=== PATIENT | female | born 1960 | race Caucasian/White ===

== ENCOUNTER 2021-01-24 22:31 | Emergency (ER) | payer BC, SELFPAY ==
--- NOTE | ~2021-01-24 | CT_ITS ---
EXAMINATION: CT HEAD WITHOUT CONTRAST CT CERVICAL SPINE WITHOUT CONTRAST CLINICAL INFORMATION: Head trauma COMPARISON: None. TECHNIQUE: Multidetector CT imaging of the head and cervical spine was performed without the use of intravenous contrast. Multiplanar reformats are reviewed. This CT examination was performed using dose optimization techniques as appropriate, variously including the following: *Automated exposure control *Adjustment of mA and/or kV according to patient size (this includes techniques or standardized protocols for targeted exams where dose is matched to indication/reason for exam; i.e. extremities or head) *Use of iterative reconstruction technique DLP: 1069 mGy-cm. FINDINGS: There is no evidence of acute intracranial hemorrhage or territorial infarction. No abnormal mass effect or midline shift is seen. Cruz to white matter differentiation is well preserved. No extra-axial fluid collections are identified. The ventricles are normal in size. Mild patchy subcortical and periventricular white matter low-attenuation changes statistically related to chronic white matter small vessel ischemic disease. Thin right parietal calvarial subgaleal hematoma. Small secretions present within the right maxillary sinus and throughout the ethmoid air cells. Atlantooccipital alignment is maintained. The vertebral bodies and posterior elements align normally. No acute fracture or subluxation. Vertebral body heights are maintained.Endplate osteophyte is present at C4-C5 and C5-C6 with accompanying loss of disc space height. Bulky hypertrophic facet arthropathy present on the left at C3-C4. Mild facet arthropathy throughout the remainder of the cervical spine. Varying degrees of foraminal narrowing present throughout cervical spine, most pronounced on the left at C5-C6 The cervicomedullary junction and spinal cord are grossly unremarkable. The paraspinal soft tissues are unremarkable. Imaged lung apices demonstrate moderate centrilobular paraseptal emphysema. CT/CT cervical spine wo con IMPRESSION: No acute intracranial pathology. Mild chronic white matter small vessel ischemic changes. Thin right parietal calvarial subgaleal hematoma. No cervical spine fracture or malalignment.
[2021-01-24 22:47] VITALS: BP 158/90; PULSE 97; RESP 16; TEMP 36.5; O2SAT 95; BMI 23.3
--- NOTE | 2021-01-24 23:13 | ED.FALL ---
HPI - Fall General Chief Complaint: Fall Stated Complaint: etoh fall Time Seen by Provider: 01/24/21 23:06 History of Present Illness HPI Narrative: 60-year-old female status post accidental fall. Patient positive ETOH subsequently accidentally fell. Hit her head. There is questionable loss of consciousness for about 1 minutes. Patient is not on any blood thinners. No significant past medical history. Not on any medications. Patient is from home. No suicidal homicidal ideations. Related Data Allergies Allergy/AdvReac Type Severity Reaction Status Date / Time No Known Allergies Allergy Verified 01/24/21 23:06 Review of Systems Review of Systems: Constitutional: No Weight loss, No Fever, No Chills, No Night Sweats, No Fatigue, No Malaise ENT/Mouth: No Hearing loss, No Ear Pain, No Nasal Congestion, No Sinus Pain, No Hoarseness, No sore throat, No Rhinorrhea, No Swallowing Difficulty. Eyes: No Eye Pain, No Swelling, No Redness, No Foreign Body, No Discharge, No Vision Changes Cardiovascular: No Chest Pain, No SOB, No Dyspnea on Exertion, No Orthopnea, No Edema, No Palpitations Respiratory: No Cough, No Sputum, No Wheezing, No Smoke Exposure, No Dyspnea Gastrointestinal: No Nausea, No Vomiting, No Diarrhea, No Constipation, No abdominal Pain, No Hematochezia, No Melena Genitourinary: no irregular bleeding, No Dysuria, No Urinary Frequency, No Hematuria, No Urinary Incontinence, No Urgency, No Flank Pain, No Urinary Flow Changes, No Hesitancy Musculoskeletal: No joint pain, No Myalgias, No Joint Swelling Skin: No Skin Lesions, No rash Neuro: No Weakness, No Numbness, No Paresthesias, No Loss of Consciousness, No Dizziness, No Headache Psych: No Anxiety/Panic, No Depression, No SI/HI/AH/VH, No Social Issues, Heme/Lymph: No Bruising, No Bleeding,No Lymphadenopathy Endocrine: No Polyuria, No Polydipsia, No Temperature Intolerance Yes all other systems are reviewed and are negative [facility] Past Medical History Attestation statement: The following information was validated with the patient. Social History Social History Alcohol intake: current Alcohol intake frequency: a few times a week Alcohol type: hard liquor Patient Tobacco Use Status: Current everyday Tobacco user Smoked in Last 30 Days: Yes Use of substances other than those prescribed or required for medical reasons: No Advance Directives: No Advance Directives Information Provided: No Patient : No Physical Exam Vital Signs: Vital Signs: Last Vital Signs Temp 97.7 F 01/24/21 22:47 Pulse 97 01/24/21 22:47 Resp 16 01/24/21 22:47 BP 158/90 H 01/24/21 22:47 Pulse Ox 95 01/24/21 22:47 Body Mass Index 23.3 Appearance: Alert. Oriented X3. No acute distress. Positive 3 cm superficial laceration to the occipital area Eyes: Pupils equal, round and reactive to light. ENT: Pharynx normal. Neck: Normal inspection. Neck supple. No lymph nodes noted. No crepitus. C-spine immobilized secondary distracting injury trachea is midline. No C-spine tenderness elicited on palpation. CVS: Normal heart rate and rhythm. Pulses normal. Normal S1 and S2 Respiratory: No respiratory distress. Breath sounds normal. No Wheezing. No rales. Lungs are clear bilaterally. Nontender to touch Abdomen: Soft and nontender. No rigidity. No distention. good BS x4 Skin: Skin warm and dry. Normal skin color. Normal skin turgor. Extremities: No lower extremity edema. Neurovascular intact to all extremities. No Lacerations. No Rash Neuro: Oriented X 3. No motor deficit. No sensory deficit. Moving all extermities. No slurred speech MDM - Fall MDM Narrative Medical decision making narrative: CT scan of the head was grossly negative for any acute evidence of fracture no bleed. Patient's alcohol grossly elevated. Family at bedside will take patient home and monitor. Currently in stable condition. C-spine CT was negative for acute evidence of fracture. Patient is in stable condition with discharge home. Lab Data Result diagrams: 01/24/21 23:33 01/24/21 23:33 Labs: Lab Results 01/24/21 01/24/21 01/24/21 Range/Units 23:08 23:08 23:26 WBC (4.8-10.8) X10*3/uL RBC (4.20-5.50) X10*6/uL Hgb (12.0-16.0) g/dl Hct (37-47) % MCV (80-98) fL MCH (27.0-33.0) pg MCHC (31.0-35.0) g/dl RDW (11.0-16.0) % Plt Count (160-400) X10*3/uL MPV (9.4-12.3) fL Immature Gran % (Auto) (0.0-0.4) % Neut % (Auto) (45-73) % Lymph % (Auto) (20-40) % [place] % (Auto) (2-11) % Eos % (Auto) (0-4) % Baso % (Auto) (0-2) % Lymph # (Auto) (1.2-4.9) X10*3/uL [place] # (Auto) (0.1-1.2) X10*3/uL Eos # (Auto) (0.0-0.4) X10*3/uL Baso # (Auto) (0.0-0.2) X10*3/uL Abs Immat Gran (auto) (0.00-0.03) X10*3/uL Absolute Neuts (auto) (2.0-8.3) X10*3/uL Absolute Nucleated RBC (0.0-0.012) X10*3/uL Nucleated RBC % (auto) (0.0-0.2) /100WBC Sodium (135-145) mmol/L Potassium (3.3-5.1) mmol/L Chloride (96-108) mmol/L Carbon Dioxide (22-29) mmol/L Anion Gap (12-20) BUN (9-16) mg/dL Creatinine (0.5-1.4) mg/dL Estim Creat Clear Calc Estimated GFR Random Glucose (60-115) mg/dL Calcium (8.4-10.2) mg/dL Urine Color STRAW Urine Appearance CLEAR Urine pH 6.0 (5.0-8.0) Ur Specific Caret <= 1.005 (1.005-1.025) Urine Protein NEG (NEG-TRACE) MG/DL Urine Glucose (UA) NEG (NEG) MG/DL Urine Ketones NEG (NEG) MG/DL Urine Blood NEG (NEG) Urine Nitrite NEG (NEG) Ur Leukocyte Esterase NEG (NEG) Urine Opiates Screen Not Detected (Not Detect) Ur Barbiturates Screen Not Detected (Not Detect) Ur Phencyclidine Scrn Not Detected (Not Detect) Ur Amphetamines Screen Not Detected (Not Detect) U Benzodiazepines Scrn Not Detected (Not Detect) Urine Cocaine Screen Not Detected (Not Detect) U Marijuana (THC) Screen POSITIVE H (Not Detect) Ethyl Alcohol 243 mg/dL 01/24/21 01/24/21 Range/Units 23:33 23:33 WBC 11.0 H (4.8-10.8) X10*3/uL RBC 4.71 (4.20-5.50) X10*6/uL Hgb 15.6 (12.0-16.0) g/dl Hct 45.2 (37-47) % MCV 96.0 (80-98) fL MCH 33.1 H (27.0-33.0) pg MCHC 34.5 (31.0-35.0) g/dl RDW 13.2 (11.0-16.0) % Plt Count 351 (160-400) X10*3/uL MPV 8.7 L (9.4-12.3) fL Immature Gran % (Auto) 1.5 H (0.0-0.4) % Neut % (Auto) 68.6 (45-73) % Lymph % (Auto) 22.7 (20-40) % [place] % (Auto) 5.2 (2-11) % Eos % (Auto) 1.5 (0-4) % Baso % (Auto) 0.5 (0-2) % Lymph # (Auto) 2.5 (1.2-4.9) X10*3/uL [place] # (Auto) 0.6 (0.1-1.2) X10*3/uL Eos # (Auto) 0.2 (0.0-0.4) X10*3/uL Baso # (Auto) 0.1 (0.0-0.2) X10*3/uL Abs Immat Gran (auto) 0.16 H (0.00-0.03) X10*3/uL Absolute Neuts (auto) 7.5 (2.0-8.3) X10*3/uL Absolute Nucleated RBC 0.000 (0.0-0.012) X10*3/uL Nucleated RBC % (auto) 0.0 (0.0-0.2) /100WBC Sodium 146 H (135-145) mmol/L Potassium 3.6 (3.3-5.1) mmol/L Chloride 110 H (96-108) mmol/L Carbon Dioxide 20 L (22-29) mmol/L Anion Gap 20 (12-20) BUN 8 L (9-16) mg/dL Creatinine 0.62 (0.5-1.4) mg/dL Estim Creat Clear Calc 89.0 Estimated GFR > 60 Random Glucose 93 (60-115) mg/dL Calcium 9.5 (8.4-10.2) mg/dL Urine Color Urine Appearance Urine pH (5.0-8.0) Ur Specific Caret (1.005-1.025) Urine Protein (NEG-TRACE) MG/DL Urine Glucose (UA) (NEG) MG/DL Urine Ketones (NEG) MG/DL Urine Blood (NEG) Urine Nitrite (NEG) Ur Leukocyte Esterase (NEG) Urine Opiates Screen (Not Detect) Ur Barbiturates Screen (Not Detect) Ur Phencyclidine Scrn (Not Detect) Ur Amphetamines Screen (Not Detect) U Benzodiazepines Scrn (Not Detect) Urine Cocaine Screen (Not Detect) U Marijuana (THC) Screen (Not Detect) Ethyl Alcohol mg/dL Discharge Plan Discharge Clinical Impression: Head injury, Alcohol abuse Patient Disposition: Home, Self-Care Instructions: Head Injury (ED), Alcohol Intoxication (ED) Referrals: Physician,Unknown [Primary Care Provider] - 2 days
[2021-01-24 23:18] LABS: Glucose Urine UA NEG (NEG); Leukocyte Esterase Urine NEG (NEG); Nitrite Urine NEG (NEG); Specific Gravity - Urine <= 1.005 (1.005-1.025); Urine Blood NEG (NEG); Urine Ketones NEG (NEG); Urine Protein NEG (NEG-TRACE)
[2021-01-24 23:21] LABS: Appearance Urine CLEAR; Color Urine STRAW
[2021-01-24 23:26] LABS: Amphetamine Screen Urine Not Detected (Not Detect); Barbiturates, Urine Not Detected (Not Detect); Benzodiazepines Screen Urine Not Detected (Not Detect); Cannabinoid Screen Urine POSITIVE (Not Detect); Cocaine Screen Urine Not Detected (Not Detect); Opiate Screen Urine Not Detected (Not Detect); Phencyclidine Screen Urine Not Detected (Not Detect)
[2021-01-24] MEDS: Diphth,Pertus(ACell),Tet Adult 0.5 ML SYRINGE IM (23:27)
[2021-01-24 23:43] LABS: MANUAL DIFF FLAG NO
[2021-01-24 23:44] LABS: Basophils Absolute Auto 0.1 X10*3/uL (0.0-0.2); Basophils Percent Auto 0.5 % (0-2); Eosinophils Absolute Auto 0.2 X10*3/uL (0.0-0.4); Eosinophils Percent Auto 1.5 % (0-4); Hematocrit 45.2 % (37-47); Hemoglobin 15.6 g/dl (12.0-16.0); Imm Gran Abs Auto 0.16 X10*3/uL (0.00-0.03); Imm Gran Pct Auto 1.5 % (0.0-0.4); Lymphocytes Absolute Auto 2.5 X10*3/uL (1.2-4.9); Lymphocytes Percent Auto 22.7 % (20-40); Mean Corpuscular HGB Conc 34.5 g/dl (31.0-35.0); Mean Corpuscular Hemoglobin 33.1 pg (27.0-33.0); Mean Platelet Volume 8.7 fL (9.4-12.3); Monocytes Absolute Auto 0.6 X10*3/uL (0.1-1.2); Monocytes Percent Auto 5.2 % (2-11); Neutrophils Absolute Auto 7.5 X10*3/uL (2.0-8.3); Neutrophils Percent Auto 68.6 % (45-73); Platelet Count 351 X10*3/uL (160-400); Red Blood Count 4.71 X10*6/uL (4.20-5.50); Red Cell Distribution Width 13.2 % (11.0-16.0)
[2021-01-25] VITALS: BP 153/80; PULSE 74; RESP 18; TEMP 36.4; O2SAT 97
[2021-01-25 00:07] LABS: Ethanol 243 mg/dL
[2021-01-25 00:08] LABS: Anion Gap 20 (12-20); Blood Urea Nitrogen 8 mg/dL (9-16); Calcium 9.5 mg/dL (8.4-10.2); Carbon Dioxide 20 mmol/L (22-29); Chloride 110 mmol/L (96-108); Estimated Glomerular Filt Rate > 60; Glucose Random 93 mg/dL (60-115); Potassium 3.6 mmol/L (3.3-5.1); Sodium 146 mmol/L (135-145)
--- NOTE | 2021-01-25 00:36 | PC.NURSE ---
This Tech cleaned pts wound on head with saline,Md blessing aware
== END 2021-01-25 00:41 | disposition home or self-care (01) ==
PROVIDERS: Emergency Provider Emergency Medicine Emergency Medical Services
DX: S09.90XA Unspecified injury of head, initial encounter (principal); F10.129 Alcohol abuse with intoxication, unspecified; Y90.8 Blood alcohol level of 240 mg/100 ml or more; W19.XXXA Unspecified fall, initial encounter; Y93.9 Activity, unspecified; Y92.9 Unspecified place or not applicable; Y99.9 Unspecified external cause status
CPT/HCPCS: 36415; 70450; 72125; 80048; 80307; 81003; 82077; 85025; 90471; 90715; 99284

== ENCOUNTER 2025-08-03 10:42 | Outpatient (AMB) | payer BC, SELFPAY ==
--- NOTE | 2025-08-03 10:42 | A.OFFPC_ITS ---
Vital Signs 08/03/25 10:46 Height 5 ft 4.96 in Weight 117 lb BMI 19.5 BP 141/72 H Blood Pressure Location Rt brachial Position Sitting Respiration 14 Pulse 84 Pulse Source Pulse Oximeter Temp 98.2 F Temp Source Temporal Artery Scan Pulse Oximetry (%) 96 Oxygen Delivery Method Room Air Intake Visit Reasons: Annual physical, new - see comments Global Climate Change Analyst Required: No Accompanied by: Self / Same As Patient Allergies No Known Allergies Allergy (Verified 08/03/25 13:25) Medication List - Last Reconciled 08/03/25 by Andrea Pearson MD meloxicam 15 mg PO DAILY Tobacco use date assessed: 08/03/25 Dental Screening Dental Screen Date: 08/03/25 Did you have a dental visit in the last 12 months?: Yes Did you have a dental problem in the last 6 months where you did not have access to dental care?: No Was dental information given to patient?: Patient has dentist (partial dentures) HPI HPI Comments History of Present Illness Details History of Present Illness - The patient is a 64 year old female pr esenting for an annual physical examination and to address concerns of finger and foot pain. - She reports developing finger issues a bout a year ago, which have been slowly worsening. - She experiences pain and a sensation o f her finger getting caught, which is most prominent in the morning. - The patient also complains of painful heels and balls of her toes bilaterally, describing the sensation as burning. - She has worked on her feet her whole [employer] and has a history of a smashed toe. - Regarding health maintenance, her last colonoscopy was at age 53, where one polyp was found, and she is now overdue for a follow-up. - Her last mammogram was about a year ag o, which had findings that were being followed, and she is due for a new one. - Her last gynecological exam was two to three years ago. - The patient smokes half a pack of ciga rettes per day and drinks alcohol occasionally. - She has recently received her flu shot . Social History - Tobacco Use: The patient smokes half a pack of cigarettes per day, attributing it to stress. - Alcohol Use: The patient reports occas ional alcohol consumption and denies daily use. 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 Results [facility] Family History (Updated 08/03/25 @ 10:50 by JAROCHO Eaton) Father Lung cancer Mother Aneurysm Social History (Updated 08/03/25 @ 10:50 by JAROCHO Eaton) Housing: House Alcohol intake: current Alcohol intake frequency: holidays/special occasions only Patient Tobacco Use Status: Current everyday Tobacco user Tobacco use type: Cigarette Cigarettes Per Day: 10 service: No Current occupational status: employed Cognitive needs: No Hearing needs: No Vision needs: No Questionnaire PHQ-9 Over the last 2 weeks, how often have you been bothered by any of the following problems? 1. Little interest or pleasure in doing things: not at all 2. Feeling down, depressed, or hopeless: not at all 3. Trouble falling or staying asleep, or sleeping too much: not at all 4. Feeling tired or having little energy: not at all 5. Poor appetite or overeating: not at all 6. Feeling bad about yourself - or that you are a failure or have let yourself or your family down: not at all 7. Trouble concentrating on things, such as reading the newspaper or watching television: not at all 8. Moving or speaking so slowly that other people could have noticed. Or the opposite - being so fidgety or restless that you have been moving around a lot more than usual: not at all 9. Thoughts that you would be better off or of hurting yourself in some way: not at all Total score: 0 Source: Developed by Drs. Akil Mora, Luna Lozoya, Paulino Pearl and colleagues, with an educational jermaine from [employer]. Thrive Questionnaire Date Thrive assessed: 08/03/25 I am a: Patient What is your living situation today?: I have a steady place to live Within the past 12 months, did the food you bought not last and you didn't have the money to get more?: Never true Within the past 12 months, did you worry whether your food would run out before you got money to buy more?: Never true Do you have trouble paying for medicines?: No Do you have trouble getting transportation to medical appointments?: No Do you have trouble paying your heating and electricity bill?: No Do you have trouble taking care of your child, family member or friend?: No Do you have trouble with day-to-day activities such as bathing, preparing meals, shopping, managing finances, etc.?: No Are you currently unemployed and looking for a job?: No Are you interested in more education?: No Please select the resources that you would like help with: None THRIVE Score: 0 AUDIT C Alcohol Use Questionnaire (AUDIT-C) 1. How often do you have a drink containing alcohol?: Monthly or less 2. How many drinks containing alcohol do you have on a typical day when you are drinking?: 1 or 2 3. How often do you have six or more drinks on one occasion?: Never Total Score: 1 GLEN-7 AMB Questionnaire GLEN-7 Date GLEN - 7 assessed: 08/03/25 Feeling nervous, anxious, or on edge: 0 = Not at all Not being able to stop or control worryin = Not at all Worrying too much about different things: 0 = Not at all Trouble relaxin = Not at all Being so restless that it is hard to sit still: 0 = Not at all Becoming easily annoyed or irritable: 0 = Not at all Feeling afraid as if something awful might happen: 0 = Not at all Total GLEN-7 score (0-4 normal; 5-9 mild; 10-14 moderate; 15-21 severe): 0 Source: Developed by Drs. Akil Mora, Luna Lozoya, Paulino Pearl and colleagues, with an educational jermaine from [employer]. Review of Systems Narrative Review of Systems - Musculoskeletal: Reports finger pain, stiffness, and a locking sensation, consistent with trigger finger. Reports bilateral foot pain in the heel and ball of the toes. - Neurological: Reports a burning sensation in her feet. - Eyes: Reports blurred vision when reading small print. Denies seeing halos around lights. - Ears: Reports good hearing. Physical exam (Primary Care) Vital Signs: Last Vital Signs Temp 98.2 F 08/03/25 10:46 Pulse 84 08/03/25 10:46 Resp 14 08/03/25 10:46 BP 141/72 H 08/03/25 10:46 Pulse Ox 96 08/03/25 10:46 Oxygen Delivery Method Room Air 08/03/25 10:46 BMI result Body Mass Index 19.5 Tobacco/Smoking Status: Tobacco use Status Tobacco use date assessed 08/03/25 08/03/25 10:44 Patient Tobacco Use Status Current everyday Tobacco 08/03/25 10:50 Tobacco use type Cigarette 08/03/25 10:50 PHQ-9: PHQ-9 Score PHQ-9: Total score 0 08/03/25 10:44 Thrive Assessment: Date of Thrive Assessment Date Thrive assessed 08/03/25 08/03/25 10:44 Narrative Physical Exam General: Cooperative and healthy appearing Nutritional Appearance: Well nourished Orientation/consciousness: Patient oriented x3 Limitations: No limitations Head: Normal to inspection General: Appearance normal, both eyes and all related structures Neck: Normal visual inspection Chest: Normal palpation of entire chest wall Respiratory: Normal respiratory effort Neurology: Patient oriented x3 Office Procedures Flu Questionnaire Does the patient have a severe egg allergy?: No Does the patient have severe life threatening allergies?: No Does the patient have a fever or illness today?: No Has the patient ever had Guillain-Sugarcreek Syndrome?: No Has the patient ever had any past reaction to a flu shot?: No Immunizations Fluarix [id number] (PF) 45 mcg (15 mcg x 3)/0.5 mL IM syringe Performing Provider: Andrea Pearson MD [facility] Administered by: JAROCHO Eaton on 08/03/25 10:51 Dose Route Admin Location Dispensed Lot Number Expiration Date [employer] Faculty Member 0.5 mL IM Left Deltoid 0.5 mL [id number] 02/09/26 69677-268-09 [employer] VIS Given Date VIS Provided VIS Publication Date 08/03/25 Single Vaccine 24 Eligibility Eligibility Date Funding Source Not [facility] Eligible 08/03/25 Private Coding Level of Care Code New Pt Prev Care 40-64y(10823) Add On Preventative Visit Only Diagnoses Osteoarthritis M19.90 Annual physical exam Z00.00 Assessment & Plan Assessment & Plan (1) Osteoarthritis: Code(s): M19.90 - Unspecified osteoarthritis, unspecified site Plan: Referral for trigger finger to ortho (2) Annual physical exam: Code(s): Z00.00 - Encounter for general adult medical examination without abnormal findings Plan Plan - Prescribed meloxicam for osteoarthritis/trigger finger, with instructions to take it with food. - Will refer the patient to a hand specialist for a steroid injection for the trigger finger. - Ordered comprehensive fasting blood work, including a complete blood count, kidney function tests, electrolytes, cholesterol panel, thyroid panel, and a vitamin B12 level to investigate the cause of her foot pain. - Ordered a routine screening mammogram. - Ordered a screening colonoscopy. - Recommended wearing a donut-shaped foot splint to help relieve pressure and pain in the feet. - The patient will self-schedule an appointment with her rail project engineer for a routine examination. - Scheduled a follow-up appointment in six months. Discussion Notes I explained to the patient that her finger symptoms are consistent with trigger finger due to osteoarthritis. I discussed that treatment involves reducing inflammation and prescribed meloxicam for short-term relief, advising her to take it with food. I recommended a referral to a hand specialist for a steroid injection as a more definitive treatment. Regarding her foot pain, I explained that we would order blood work, including a vitamin B12 level, to rule out a nutritional deficiency as a cause. I also suggested trying an [id number] donut-shaped foot support to alleviate pressure. We discussed the need for routine health screenings, and I have placed orders for a mammogram and colonoscopy. I also ordered comprehensive fasting labs. The patient acknowledged her need for a gynecological exam and will schedule it herself. We will follow up in six months to review the results and her progress. Patient Instructions - You will be referred to a hand specialist for your finger pain; you should expect a call to schedule this appointment. - A prescription for Meloxicam has been sent to your pharmacy. Take this medication with a meal like breakfast, lunch, or dinner to help with finger pain. - Please go for blood work. You need to fast before the test, meaning you should not eat or drink anything with milk or sugar. Water and black coffee are okay. The lab [place] on [address]. - You will receive a call to schedule a mammogram and a colonoscopy. Please contact our office if you do not hear from them within a week. - For your foot pain, you can buy a donut-shaped support from a pharmacy like [facility] or online to help relieve pressure. - Please schedule an appointment with your rail project engineer for a routine exam. - Your follow-up appointment in this office will be in six months. Orders: Orders Influenza [id number] Immunization Today Z23 - Encounter for immunization Lipid Panel Today E78.5 - Hyperlipidemia, unspecified UA and rflx microscopic Today E78.5 - Hyperlipidemia, unspecified Vitamin B12 and Folate Today E78.5 - Hyperlipidemia, unspecified Complete Blood Count no Diff Today E78.5 - Hyperlipidemia, unspecified Basic Metabolic Panel Today E78.5 - Hyperlipidemia, unspecified Liver Panel Today E78.5 - Hyperlipidemia, unspecified Thyroid Stimulating Hormone Today E78.5 - Hyperlipidemia, unspecified MM screening mammo BI Today Z12.31 - Encounter for screening mammogram for malignant neoplasm of breast Referrals Orthopedics Referral M65.30 - Trigger finger, unspecified finger Gastroenterology Referral Z12.11 - Encounter for screening for malignant neoplasm of colon Medications: New meloxicam 15 mg PO DAILY 14 tabs 0RF
[2025-08-03 10:46] VITALS: BP 141/72; PULSE 84; RESP 14; TEMP 36.8; O2SAT 96; BMI 19.5
--- OUTSIDE RECORDS SUMMARY | 2025-08-03 13:16 | XMS_ITS ---
Author Name [facility] Organization Unknown Care Team Organization Name Specialty Phone Email Start Date End Da te [employer] Outbound ADT-[facility] 07/25 Office of the [facility] Consultant ([facility]) 06/27/2024
== END 2025-08-03 11:14 | disposition home or self-care (01) ==
LOC: HO.HMCSH 10:42
PROVIDERS: PCP Internal Medicine; Visit Provider Internal Medicine
DX: Z00.00 Encounter for general adult medical examination without abnormal findings (principal); M19.90 Unspecified osteoarthritis, unspecified site; Z23 Encounter for immunization

== ENCOUNTER → 2025-08-03 10:42 | Outpatient (BNVA) | payer BC, SELFPAY | PROVIDERS: PCP Internal Medicine; Visit Provider Internal Medicine | DX: Z23 Encounter for immunization (principal); Z13.31 Encounter for screening for depression; Z13.39 Encounter for screening examination for other mental health and behavioral disorders | CPT/HCPCS: 90471; 90656; 96127 ==